=== PATIENT | female | born 1975 | race Asian ===

== ENCOUNTER 2018-04-03 05:05 | Day surgery (SDC) | payer BC, OTHER ==
[2018-03-28 12:31] VITALS: BMI 24.3
[2018-04-03] MEDS ORDERED: PROPOFOL 20 ML ONE ×2 (08:20→10:07)
[2018-04-03] MEDS ORDERED: fentaNYL CITRATE 250 MCG/5 ML VIAL ONE (10:07)
[2018-04-03] MEDS ORDERED: SUCCINYLCHOLINE CHLORIDE 200 MG/10 ML VIAL ONE (10:07)
[2018-04-03] MEDS ORDERED: MIDAZOLAM HCL 2 MG/2 ML SINGLE DOSE VIAL ONE (10:07)
[2018-04-03] MEDS ORDERED: IBUPROFEN 800 MG/8 ML IJ IVPB PRN (10:28)
[2018-04-03] MEDS ORDERED: oxyCODONE HCL 5 MG TABLET PO PRN (10:28)
[2018-04-03] MEDS ORDERED: IBUPROFEN 600 MG TABLET (FP) PO PRN (10:28)
[2018-04-03] MEDS ORDERED: ONDANSETRON 4 MG/2 ML VIAL IVPUSH PRN (10:28)
--- NOTE | 2018-04-03 10:28 | HP ---
History & Physical Update - History History: No Change (H&P reviewd, no changes since 03/13/18 concent signed and witnessed all questions answered) - Physical Physical: No Change - Assessment Assessment: No Change - Plan Plan: No Change
[2018-04-03] MEDS ORDERED: ELECTROLYTE-148 SOLN 1,000 ML IV SCH (10:30)
[2018-04-03] MEDS ORDERED: LACTATED RINGERS SOLUTION 1,000 ML IV SCH (11:15)
--- NOTE | 2018-04-03 11:31 | OP ---
Operative Note - Note: Operative Date: 04/03/18 Pre-Operative Diagnosis: 42yo with menometrorrhagia, fibroid uterus Operation: Hysteroscopy, Myomectomy, Polypectomy, Endometrial ablation Findings: 1. 4cm Right cornual fibroid 2. Endometrial polyp 3. Cervical polyp 4. Completed HTA cycle Post-Operative Diagnosis: Same as Pre-op Surgeon: Susannah Rowley Anesthesiologist/LENS GENERATOR: Zulema Calix Anesthesia: MAC Estimated Blood Loss (mls): 5 Instrument used (Debridements only): Symphion and [employer] Drains & Tubes with Location: Fluid defficit 600cc Drains, Volume Out (mls): 100 Fluid Volume Replaced (mls): 800 Operative Report Dictated: Yes
[2018-04-03] MEDS ORDERED: IBUPROFEN 800 MG/8 ML IJ IVPB ONE (13:29)
[2018-04-03 14:35] VITALS: TEMP 97.6
[2018-04-03] MEDS ORDERED: ONDANSETRON 4 MG/2 ML VIAL IVPUSH ONE (15:45)
[2018-04-03] MEDS ORDERED: ONDANSETRON 4 MG/2 ML VIAL ONE (15:46)
[2018-04-03] MEDS ORDERED: ACETAMINOPHEN 325 MG TABLET (FP) ONE ×2 (17:28→17:30)
[2018-04-03] MEDS ORDERED: ACETAMINOPHEN 325 MG TABLET (FP) PO ONE ×2 (17:29→17:33)
[2018-04-03 18:05] VITALS: BP 126/73; PULSE 61
--- NOTE | 2018-04-03 21:47 | OP ---
DATE OF OPERATION: 04/03/2018 PREOPERATIVE DIAGNOSES: A 42-year-old with menometrorrhagia, fibroid uterus. OPERATION: Hysteroscopy, myomectomy, polypectomy, endometrial ablation. FINDINGS: 1. A 4-cm right cornual fibroid 2. Endometrial polyp. 3. Cervical polyp. 4. Completed HTA cycle. POSTOPERATIVE DIAGNOSES: A 42-year-old with menometrorrhagia, fibroid uterus. SURGEON: Tari Mendoza MD CERTIFIED REGISTERED NURSE FIBERGLASS MACHINE OPERATOR: Zulema Feldman CRNA ANESTHESIA: MAC. DESCRIPTION OF THE OPERATIVE PROCEDURE: After assuring informed consent, the patient was brought to the operating room, where she was placed in dorsal lithotomy position. Perineum was prepped and draped in sterile fashion. Symphion hysteroscope was assembled, white-balanced, and primed. Butler retractors were placed into the vagina. Anterior cervical lip was visualized and articulated with single-toothed tenaculum. Cervix was dilated to accommodate 6.3-mm hysteroscope, which was introduced into the uterus without any difficulty. Bilateral ostia were visualized and a 4-cm right cornual fibroid was visualized as well, as well as the uterine polyp and the cervical polyp. The resectoscope was introduced through the operative channel and all structures, polyps, and fibroid were all resected without any difficulty. Subsequently, the Symphion resectoscope was removed from the uterus and HTA hysteroscope was introduced into the uterine cavity and a full 10-minute HTA ablation cycle was completed without any difficulty with appropriate change in the coloring of the endometrium was noted. Subsequently, all instruments were removed from the cervix, vagina, and uterus. Estimated blood loss was 5 mL. Patient received 800 mL of fluids, drained 100 mL of urine, and had 600 mL of fluid deficit. The patient tolerated the procedure well. All sponge and instrument counts were correct x2. The patient was brought to the recovery room in stable condition. TARI MENDOZA M.D. [id number]
--- NOTE | 2018-04-06 18:24 | PATH ---
Surgical Pathology Report Patient Name: EVELIN LOPEZ [facility]. Rec. #: [id number] /Age/Gender: 1975 (Age: 42) / F Account: [id number] Location: [facility] SURGICAL Taken: 04/03/2018 Received: 04/03/2018 Reported: 04/06/2018 Physicians: Susannah Rowley M.D. Specimen(s) Received FIBROID, ENDOMETRIAL POLYPS, ENDOMETRIAL CURETTINGS Clinical History Polyp of corpus uteri, abnormal uterine/vaginal bleeding Final Diagnosis FIBROID, ENDOMETRIAL POLYPS, ENDOMETRIAL CURETTINGS, HYSTEROSCOPIC FIBROID RESECTION, POLYPECTOMY, DILATION AND CURETTAGE: BROAD BUNDLES OF SMOOTH MUSCLE CONSISTENT WITH LEIOMYOMA AND POLYPOID FRAGMENTS OF PROLIFERATIVE ENDOMETRIUM SUGGESTIVE OF ENDOMETRIAL POLYP. Comment: Immunohistochemical stains performed at [place], [place] ([id number]) and interpreted at [facility] for [id number] utilized to evaluate this case. Electronically Signed Shayy Merino M.D. Gross Description Received in formalin labeled "fibroid, endometrial polyps, endometrial curettings," is a 3.5 x 2.7 x 0.3 cm aggregate of connell-pink soft tissue fragments. The formalin is filtered and the specimen is entirely submitted in 2 cassettes. /04/03/2018 [facility]04/03/2018
== END 2018-04-03 18:20 | disposition home or self-care (01) ==
LOC: JASU-SURG 05:05
PROVIDERS: ATTEND Obstetrics & Gynecology
PROC: 0UJD8ZZ Inspection of Uterus and Cervix, Via Natural or Artificial Opening Endoscopic (ICD-10-PCS; 2018-04-03)
PROC: 0U5B8ZZ Destruction of Endometrium, Via Natural or Artificial Opening Endoscopic (ICD-10-PCS; 2018-04-03)
PROC: 0UB98ZZ Excision of Uterus, Via Natural or Artificial Opening Endoscopic (ICD-10-PCS; principal; 2018-04-03 09:00)
PROC: 0UBC7ZX Excision of Cervix, Via Natural or Artificial Opening, Diagnostic (ICD-10-PCS; 2018-04-03 09:00)
PROC: 0UB97ZX Excision of Uterus, Via Natural or Artificial Opening, Diagnostic (ICD-10-PCS; 2018-04-03 09:00)
DX: N92.1 Excessive and frequent menstruation with irregular cycle (principal); D25.9 Leiomyoma of uterus, unspecified; N84.0 Polyp of corpus uteri; N84.1 Polyp of cervix uteri
CPT/HCPCS: 84703; 88305-TC; 94760

== ENCOUNTER 2024-01-30 09:00 | Inpatient (IN) | payer BC, OTHER ==
[2024-02-05 10:01] VITALS: BMI 24.0
[2024-02-06] MEDS ORDERED: MIDAZOLAM HCL 2 MG/2 ML SINGLE DOSE VIAL ONE ×2 (09:09→14:32)
[2024-02-06] MEDS ORDERED: ROCURONIUM BROMIDE 50 MG/5 ML SYRINGE ONE (09:09)
[2024-02-06] MEDS ORDERED: BUPIVACAINE HCL/PF 0.25% (2.5MG/ML) 10 ML VIAL ONE (09:34)
[2024-02-06] MEDS ORDERED: BACITRACIN ZINC 15 GM TUBE TOPICAL OINTMENT ONE (09:34)
[2024-02-06] MEDS ORDERED: NEOSTIGMINE METHYLSULFATE 0.5 MG/1 ML - 10 ML MDV ONE (10:45)
[2024-02-06] MEDS ORDERED: PROPOFOL 20 ML ONE ×2 (11:20→14:34)
[2024-02-06] MEDS ORDERED: BENZOIN/ALOE VERA/STORAX/TOLU 58 ML BOTTLE ONE (11:30)
[2024-02-06] MEDS ORDERED: ONDANSETRON 4 MG/2 ML VIAL IVPUSH PRN (11:48)
[2024-02-06] MEDS ORDERED: NALOXONE HCL 0.4 MG/ML VIAL IVPUSH PRN (11:48)
[2024-02-06] MEDS ORDERED: IBUPROFEN 800 MG/8 ML IJ IVPB PRN ×3 (11:54→19:49)
[2024-02-06] MEDS ORDERED: IBUPROFEN 600 MG TABLET (FP) PO PRN (11:54)
[2024-02-06] MEDS ORDERED: oxyCODONE HCL 5 MG TABLET PO PRN (11:54)
[2024-02-06] MEDS ORDERED: LACTATED RINGERS SOLUTION 1,000 ML IV SCH (12:00)
[2024-02-06] MEDS: ELECTROLYTE-148 SOLN 1,000 ML IV SCH (14:10)
[2024-02-06] MEDS: morphine SULFATE/PF 1 MG/2 ML (2cc Syringe - QUVA) IT ONE (14:14)
[2024-02-06] MEDS: ONDANSETRON 4 MG/2 ML VIAL IVPUSH PRN (16:48)
[2024-02-06] MEDS: CEFAZOLIN 2 GM/D5W 2 GM/50 ML ML IVPB SCH (19:45)
[2024-02-07] MEDS: ACETAMINOPHEN 1000 MG/100 ML BAG IVPB PRN (06:24)
[2024-02-07 07:19] LABS: HEMATOCRIT 38.1 % (32.4-45.2); HEMOGLOBIN 12.7 GM/dL (10.7-15.3); MCH 30.9 pg (25.7-33.7); MCHC 33.5 g/dl (32.0-36.0); MEAN CELL VOLUME 92.3 fl (80-96); MEAN PLT VOLUME 7.8 fl (7.5-11.1); PLATELET COUNT 233 10^3/uL (134-434); RBC 4.12 M/mm3 (3.60-5.2); RDW 12.7 % (11.6-15.6); WHITE BLOOD COUNT 11.6 K/mm3 (4.0-10.0)
[2024-02-07] MEDS ORDERED: PROCHLORPERAZINE INJECTION 10 MG/2 ML VIAL IVPB PRN (10:49)
[2024-02-07 11:21] LABS: POTASSIUM 3.7 mmol/L (3.5-5.1)
[2024-02-07 11:23] LABS: ALBUMIN 2.8 g/dl (3.4-5.0); BLOOD UREA NITROGEN 9.7 mg/dL (7-18); CALCIUM 7.5 mg/dL (8.5-10.1)
[2024-02-07 11:26] LABS: CREATININE 0.8 mg/dL (0.55-1.3)
[2024-02-07 11:28] LABS: BILIRUBIN,TOTAL 0.4 mg/dL (0.2-1); TOT PROT 5.9 g/dl (6.4-8.2)
[2024-02-07] MEDS: ACETAMINOPHEN 500 MG TABLET (FP) PO PRN (16:06)
[2024-02-07 22:51] VITALS: RESP 18
[2024-02-08 08:57] VITALS: BP 139/77; PULSE 67; TEMP 98.4
== END 2024-02-08 11:42 | disposition home or self-care (01) | DRG 743 ==
LOC: J2C 02-06 03:54 → J3W 02-06 14:19
PROVIDERS: ADMIT Obstetrics & Gynecology; ATTEND Obstetrics & Gynecology
PROC: 0UT70ZZ Resection of Bilateral Fallopian Tubes, Open Approach (ICD-10-PCS; 2024-02-06)
PROC: 0UT90ZL Resection of Uterus, Supracervical, Open Approach (ICD-10-PCS; principal; 2024-02-06 09:00)
DX: D25.9 Leiomyoma of uterus, unspecified (principal); N93.9 Abnormal uterine and vaginal bleeding, unspecified
CPT/HCPCS: 36415; 80053; 85027; 86850; 86900; 86901; 88307-TC; 94760; J0131

== ENCOUNTER 2024-02-20 18:43 | Inpatient (IN) | payer BC, OTHER ==
[2024-02-20 18:55] VITALS: BMI 20.7
[2024-02-20] MEDS ORDERED: IBUPROFEN 800 MG/8 ML IJ IVPB ONE (20:45)
[2024-02-20] MEDS ORDERED: CEFTRIAXONE 1 G/50 ML PREMIX 50 ML IVPB ONE (20:45)
[2024-02-20 20:47] LABS: VENOUS BASE EXCESS 0.6 mmol/L (-2-2); VENOUS O2 SATURATION 83.8 % (70-80); VENOUS PCO2 37.1 mmHg (38-52); VENOUS PH 7.436 (7.310-7.410)
[2024-02-20 20:49] LABS: HEMATOCRIT 44.9 % (32.4-45.2); HEMOGLOBIN 15.2 GM/dL (10.7-15.3); MCH 30.5 pg (25.7-33.7); MEAN CELL VOLUME 89.8 fl (80-96); MEAN PLT VOLUME 7.7 fl (7.5-11.1); PLATELET COUNT 317 10^3/uL (134-434); RBC 4.99 M/mm3 (3.60-5.2); RDW 12.5 % (11.6-15.6); WHITE BLOOD COUNT 19.1 K/mm3 (4.0-10.0)
[2024-02-20] MEDS: IBUPROFEN 800 MG/8 ML IJ IVPB ONE (20:54)
[2024-02-20] MEDS: SODIUM CHLORIDE 0.9% 1000 ML INFUS.BAG IV STA (20:54)
[2024-02-20] MEDS: CEFTRIAXONE 1,000 MG in DEXTROSE 5%-WATER - 50 ML IVPB ONE (20:55)
[2024-02-20 20:59] LABS: INR 1.14 (0.83-1.09); PROTHROMBIN TIME (PATIENT) 12.8 SEC (9.7-13.0)
[2024-02-20 21:02] LABS: ACTIVATED PTT 36.5 SECONDS (25.2-36.5)
[2024-02-20 21:20] LABS: POTASSIUM 4.1 mmol/L (3.5-5.1)
[2024-02-20 21:23] LABS: BLOOD UREA NITROGEN 10.8 mg/dL (7-18)
[2024-02-20 21:26] LABS: CREATININE 0.8 mg/dL (0.55-1.3)
[2024-02-20 21:27] LABS: BILIRUBIN,TOTAL 0.7 mg/dL (0.2-1); TOT PROT 7.6 g/dl (6.4-8.2)
[2024-02-20 21:29] LABS: ALBUMIN 3.7 g/dl (3.4-5.0); CALCIUM 9.4 mg/dL (8.5-10.1)
[2024-02-20 21:49] LABS: ANISOCYTOSIS 0; MACROCYTOSIS 0
[2024-02-20 22:00] LABS: PH,URINE 5.5 (5.0-8.0); URINE APPEARANCE CLEAR; URINE BILIRUBIN NEGATIVE (NEGATIVE); URINE COLOR YELLOW; URINE GLUCOSE (UA) NEGATIVE (NEGATIVE); URINE KETONE NEGATIVE (NEGATIVE); URINE LEUK ESTERASE NEGATIVE (NEGATIVE); URINE NITRITE NEGATIVE (NEGATIVE); URINE PROTEIN NEGATIVE (NEGATIVE); URINE UROBILINOGEN 0.2 mg/dL (0.2-1.0)
[2024-02-21] MEDS: SODIUM CHLORIDE 1,000 ML IV SCH (04:30)
[2024-02-21 08:41] LABS: BASO % 0.3 % (0-2.0); EOS % 7.3 % (0-4.5); HEMATOCRIT 42.1 % (32.4-45.2); LYMPH % 3.6 % (8-40); MCH 30.7 pg (25.7-33.7); MCHC 33.3 g/dl (32.0-36.0); MEAN CELL VOLUME 92.1 fl (80-96); MONO % 4.8 % (3.8-10.2); PLATELET COUNT 279 10^3/uL (134-434); RBC 4.57 M/mm3 (3.60-5.2); RDW 12.6 % (11.6-15.6); WHITE BLOOD COUNT 10.6 K/mm3 (4.0-10.0)
[2024-02-21 09:03] LABS: POTASSIUM 4.1 mmol/L (3.5-5.1)
[2024-02-21 09:10] LABS: CALCIUM 8.4 mg/dL (8.5-10.1)
[2024-02-21 09:11] LABS: BLOOD UREA NITROGEN 9.9 mg/dL (7-18); MAGNESIUM 2.1 mg/dL (1.8-2.4)
[2024-02-21 09:14] LABS: CREATININE 0.7 mg/dL (0.55-1.3)
[2024-02-21 09:16] LABS: BILIRUBIN,TOTAL 0.5 mg/dL (0.2-1); TOT PROT 6.4 g/dl (6.4-8.2)
[2024-02-21] MEDS: ENOXAPARIN NA (PORCINE) 40 MG/0.4 ML DISP.SYRIN SQ SCH (11:10)
[2024-02-21] MEDS: CEFTRIAXONE 1 G/50 ML PREMIX 50 ML IVPB SCH (20:39)
[2024-02-21] MEDS: ACETAMINOPHEN 1000 MG/100 ML BAG IVPB ONE (22:01)
[2024-02-22] MEDS: POLYETHYLENE GLYCOL (HEALTHYLAX) 3350 17 GM PACKET PO SCH (14:50)
[2024-02-23 08:41] LABS: BASO % 0.6 % (0-2.0); EOS % 17.8 % (0-4.5); HEMATOCRIT 42.5 % (32.4-45.2); HEMOGLOBIN 14.6 GM/dL (10.7-15.3); LYMPH % 41.2 % (8-40); MCHC 34.4 g/dl (32.0-36.0); MEAN PLT VOLUME 8.1 fl (7.5-11.1); MONO % 9.9 % (3.8-10.2); NEUT % 30.5 % (42.8-82.8); PLATELET COUNT 292 10^3/uL (134-434); RBC 4.72 M/mm3 (3.60-5.2); RDW 12.8 % (11.6-15.6); WHITE BLOOD COUNT 3.6 K/mm3 (4.0-10.0)
[2024-02-23 08:48] LABS: POTASSIUM 4.1 mmol/L (3.5-5.1)
[2024-02-23 08:59] LABS: BLOOD UREA NITROGEN 8.2 mg/dL (7-18)
[2024-02-23 09:00] LABS: ALBUMIN 3.3 g/dl (3.4-5.0); CALCIUM 9.2 mg/dL (8.5-10.1)
[2024-02-23 09:02] LABS: CREATININE 0.6 mg/dL (0.55-1.3)
[2024-02-23 09:04] LABS: BILIRUBIN,TOTAL 0.2 mg/dL (0.2-1); TOT PROT 7.1 g/dl (6.4-8.2)
[2024-02-23 10:10] VITALS: BP 129/60; PULSE 81; RESP 18; TEMP 98.1
== END 2024-02-23 13:31 | disposition home or self-care (01) | DRG 872 ==
LOC: JER 18:43 → JERBED 02-21 00:10 → J8W 02-21 04:04
PROVIDERS: ADMIT Internal Medicine; ATTEND Nurse Practitioner Family
DX: A41.9 Sepsis, unspecified organism (principal); N39.0 Urinary tract infection, site not specified; B96.20 Unspecified Escherichia coli [E. coli] as the cause of diseases classified elsewhere; D72.829 Elevated white blood cell count, unspecified
CPT/HCPCS: 0241U-QW; 36415; 71045-TC-FY; 74177-TC; 80053; 81003; 82803; 83605; 83735; 84100; 84484; 85025; 85610; 85730; 86850; 86900; 86901; 87040; 87086; 93005; 93010; 99285-25; J0131; Q9967